=== PATIENT | female | born 1990 | race Caucasian/White ===

== ENCOUNTER 2018-11-13 06:26 | Emergency (ER) | payer MEDICAID ==
[2018-11-13 06:44] VITALS: TEMP 97.8
--- NOTE | 2018-11-13 07:08 | C.PDOC ---
History Of Present Illness 28 yr old female p/w R ear impaction. Pt notes R ear impaction for approx 1+ week, saw Dr. Lynch yesterday who attempted to remove earwax. Pt then noted worsening pain to R ear even w/ percocet and called Dr. Lynch who reccomended g oing to OR at [facility] this morning. Pt denies any other complaints. She denies any allergies, headache, fever, chills or night sweats. No recent illness. No bleeding disorders. No chest pain or sob. No abdominal pain, GI or complaints. Time Seen by Provider: 11/13/18 06:54 Chief Complaint (Nursing): ENT Problem Past Medical History Vital Signs: Last Vital Signs Temp 97.8 F 11/13/18 06:39 Pulse 80 11/13/18 06:39 Resp 14 11/13/18 06:39 BP 118/75 11/13/18 06:39 Pulse Ox 98 11/13/18 06:39 Family History: States: Unknown Family Hx - Social History Hx Alcohol Use: No Hx Substance Use: No - Immunization History Hx Tetanus Toxoid Vaccination: Yes Hx Influenza Vaccination: No Hx Pneumococcal Vaccination: No Review Of Systems Constitutional: Negative for: Fever, Chills, Sweats, Weakness, Malaise Eyes: Negative for: Pain, Vision Change, Conjunctivae Inflammation ENT: Positive for: Ear Pain. Negative for: Ear Discharge, Nose Pain, Nose Discharge, Nose Congestion, Mouth Pain Cardiovascular: Negative for: Chest Pain, Palpitations, Orthopnea Respiratory: Negative for: Cough, Shortness of Breath, Hemoptysis, SOB with Excertion, Pleuritic Pain, Sputum Gastrointestinal: Negative for: Nausea, Vomiting, Abdominal Pain, Diarrhea, Constipation, Melena, Hematochezia, Hematemesis Genitourinary: Negative for: Dysuria, Frequency, Incontinence, Hematuria, Vaginal Discharge Musculoskeletal: Negative for: Neck Pain, Shoulder Pain, Arm Pain, Back Pain Skin: Negative for: Rash, Lesions Neurological: Negative for: Weakness, Numbness Physical Exam - Physical Exam Appears: Well, Non-toxic, No Acute Distress Skin: Normal Color, Warm Head: Atraumatic, Normacephalic Eye(s): bilateral: Normal Inspection, PERRL, EOMI Ear(s): Left: Normal, Right: TM Obscured By Wax Nose: Normal, No Flaring, No Discharge Oral Mucosa: Moist Tongue: Normal Appearing Lips: Normal Appearing Throat: Normal Neck: Normal, Normal ROM Chest: Symmetrical Cardiovascular: Rhythm Regular Respiratory: Normal Breath Sounds Gastrointestinal/Abdominal: Normal Exam, No Soft, No Tenderness Back: Normal Inspection, No CVA Tenderness Extremity: Normal ROM, No Tenderness Extremity: Bilateral: Atraumatic Neurological/Psych: Oriented x3, Normal Speech, Normal Cognition Gait: Steady Extremity: Right: No Drift, Left: No Drift ED Course And Treatment - Laboratory Results Result Diagrams: 11/13/18 07:29 11/13/18 07:29 O2 Sat by Pulse Oximetry: 98 Medical Decision Making Medical Decision Makin yr old F p/w R ear impaction set for OR today w/ Dr. Lynch. Preop labs ordered. [address] Pt in NAD. paged Dr[address] Lynch [address] Lynch's service 736 EK, NSR, No stemi Xray taken by graphic arts technician prior to Urine POC. Ordered Xray for clearance to with UNK POC, pending POC. Per Rads Tech: Aron: Hospital policy is to shield pending preg patients w/ XR. appreciate consult w/ Dr. Lynch: likely outpt if Bhcg elevated. OR on hold. 0900 BHCG quant 13k+ pt denies any abnl vaginal d/c or abdominal pain. No pelvic pain. No urinary complaints. Will likely d/c home w/ f/u w/ OBGYN given asymptomatic pending [place] for eval. 2116 appreciate consult w/ Dr. Lynch- clear for d/c home, will have outpt procedure pt in [place], agreeable w/ plan. Endorsed to pt to d/c percocet and take OTC tylenol and followup with OBGYN. she is agreeable. Disposition - Disposition Referrals: Magdalena Larsen DO [Staff Provider] - Daniel Lynch MD [Staff Provider] - Disposition: HOME/ ROUTINE Disposition Time: 07:13 Condition: GOOD Additional Instructions: TAKE OVER THE COUNTER TYLENOL WRITTEN ON THE BOTTLE FOR PAIN. IF YOU NOTICE ANY ABDOMINAL PAIN OR VAGINAL D/C COME BACK TO EMERGENCY DEPARTMENT. SEE YOUR OBGYN OR ONE WE HAVE PROVIDED [facility]. ALSO SEE DR. LYNCH INSTRUCTED. RYLAN PRESCOTT, thank you for letting us take care of you today. Your provider was Clay Peng and you were treated for RIGHT EAR CERUMEN IMPACTION. The emergency medical care you received today was directed at your acute symptoms. If you were prescribed any medication, please fill it and take as directed. It may take several days for your symptoms to resolve. Return to the Emergency Department if your symptoms worsen, do not improve, or if you have any other problems. Please contact your doctor or call one of the physicians/clinics you have been referred to that are listed on the Patient Visit Information form that is included in your discharge packet. Bring any paperwork you were given at discharge with you along with any medications you are taking to your follow up visit. Our treatment cannot replace ongoing medical care by a primary care provider outside of the emergency department. Thank you for allowing the [facility] team to be part of your care today. If you had an X-Ray or CT scan: A Radiologist will review the ED reading if any change in treatment is needed we will contact you. If you had a blood, urine, or wound culture: It will take several days for the results, if any change in treatment is needed we will contact you. If you had an STI test: It will take 48 hours for the results. Please call after 1 week if you have not heard back. Instructions: Ear Wax Impaction, Medications and , Activity During , Care Forms: [facility] ([place]) - Clinical Impression Clinical Impression: Right ear impacted cerumen,
[2018-11-13 07:33] LABS: BASO # 0.1 K/uL (0.0-0.2); BASO % 0.6 % (0.0-2.0); EOS # 0.1 K/uL (0.0-0.7); EOS % 0.5 % (0.0-4.0); HEMOGLOBIN 9.4 g/dL (11.0-16.0); LYMPH # 1.7 K/uL (1.0-4.3); LYMPH % 17.3 % (20.0-40.0); MEAN CORPUSCULAR HEMOGLOBIN 20.9 pg (27.0-31.0); MEAN CORPUSCULAR HGB CONC 32.4 g/dL (33.0-37.0); MEAN PLATELET VOLUME 9.9 fL (7.2-11.7); MONO # 0.4 K/uL (0.0-0.8); MONO % 4.1 % (0.0-10.0); NEUT # 7.4 K/uL (1.8-7.0); NEUT % 77.5 % (50.0-75.0); RBC 4.49 Mil/uL (3.80-5.20); RED CELL DISTRIBUTION WIDTH 16.4 % (11.5-14.5); WHITE BLOOD COUNT 9.6 K/uL (4.8-10.8)
[2018-11-13 07:39] LABS: MEAN CELL VOLUME 64.6 fL (81.0-99.0)
[2018-11-13 07:44] LABS: INR 1.1; PROTHROMBIN TIME 12.2 SECONDS (9.7-12.2)
[2018-11-13 07:48] LABS: ALB/GLOB RATIO 1.3 (1.0-2.1); ALT/SGPT 14 U/L (9-52); AST/SGOT 21 U/L (14-36); BLOOD UREA NITROGEN 8 mg/dL (7-17); CALCIUM 9.1 mg/dl (8.6-10.4); GFR NON-AFRICAN AMERICAN > 60
--- NOTE | 2018-11-13 08:47 | RAD ---
Date of service: 11/13/2018 PROCEDURE: CHEST RADIOGRAPH, 1 VIEW HISTORY: preop COMPARISON: None available. FINDINGS: LUNGS: The lungs are well inflated and clear. PLEURA: No pneumothorax or pleural effusion. CARDIOVASCULAR: The heart is normal in size. No aortic atherosclerotic calcifications present. OSSEOUS STRUCTURES: Within normal limits for the patient's age. VISUALIZED UPPER ABDOMEN: Normal. OTHER FINDINGS: None. IMPRESSION: No active pulmonary disease.
[2018-11-13 09:05] VITALS: BP 106/67; PULSE 97; RESP 19
[2018-11-13 09:19] VITALS: O2SAT 98
--- NOTE | 2018-11-16 13:43 | CARD ---
APPROVED REPORT Date of service: 11/13/2018 EKG Measurement Heart [id number] <Conclusion> Normal sinus rhythm Nonspecific ST abnormality Abnormal ECG
== END 2018-11-13 09:26 | disposition home or self-care (01) ==
LOC: C.ER 06:26 → C.SDS 07:48
DX: O26.899 Other specified pregnancy related conditions, unspecified trimester (principal); Z3A.00 Weeks of gestation of pregnancy not specified; H61.21 Impacted cerumen, right ear